=== PATIENT | male | born 1980 | race Caucasian/White ===

== ENCOUNTER 2017-12-10 10:12 | Day surgery (SDC) | payer BC ==
[~2017-12-10] VITALS: Ht 172.7 cm; Wt 73.4 kg
[~2017-12-10 10:12] MED LIST: PEPCID40 MG PO
[2017-12-10 10:45] VITALS: BP 112/71
[2017-12-10] MEDS ORDERED: HYDROCODON-ACE1 EAC7 PO (12:51)
[2017-12-10 13:33] VITALS: BP 105/68
[2017-12-10 14:30] VITALS: BP 106/67
== END 2017-12-10 14:55 | disposition home or self-care (01) ==
LOC: SDC 10:12
PROC: 0FT44ZZ Resection of Gallbladder, Percutaneous Endoscopic Approach (ICD-10-PCS; principal; 2017-12-10)
DX: K80.10 Calculus of gallbladder with chronic cholecystitis without obstruction (principal); F41.8 Other specified anxiety disorders; K21.9 Gastro-esophageal reflux disease without esophagitis; Z87.891 Personal history of nicotine dependence
CPT/HCPCS: 88304; J1100; J1170; J1885; J2405; J3010; J3475; Q0175; S0074